=== PATIENT | female | born 2000 | race Caucasian/White ===

== ENCOUNTER 2020-09-19 23:16 | Emergency (ER) | payer OTHER ==
[~2020-09-19] VITALS: Ht 170.2 cm; Wt 100.0 kg
[2020-09-19 23:22] VITALS: TEMP 98.9
[2020-09-20 00:27] LABS: BASO % 0.4 % (0.0-2.0); EOS % 0.4 % (0-4.0); GRAN # 5.8 (1.4-6.5); GRAN % 64.6 % (42.2-75.2); HEMATOCRIT 39.2 % (37.0-47.0); HEMOGLOBIN 13.5 g/dl (12.5-16.0); LYMPH # 2.3 (1.2-3.4); LYMPH % 25.7 % (20.0-51.0); MEAN CELL VOLUME 93 fl (80.0-100.0); MEAN CORPUSCULAR HEMOGLOBIN 32 pg (27.0-31.0); MEAN CORPUSCULAR HGB CONC 34 g/dl (33.0-37.0); MEAN PLATELET VOLUME 8.9 fl (7.4-10.4); MONO # 0.8 (0.1-0.6); MONO % 8.7 % (1.7-9.3); PLATELET COUNT 347 K/mm3 (130-400); REDCELL DISTRIBUTION WIDTH-CV 12.6 % (11.5-14.5)
[2020-09-20 00:34] LABS: PROTHROMBIN TIME 10.7 SECONDS (9.7-12.8)
[2020-09-20 00:46] LABS: ALANINE AMINOTRANSFERASE 15 U/L (4-34); ALBUMIN 4.7 gm/dL (3.5-5.0); ALKALINE PHOSPHATASE 70 U/L (50-136); ANION GAP 10 mmol/L (7-16); AST,SGOT 24 U/L (15-37); BILIRUBIN,TOTAL 0.4 mg/dL (0.0-1.0); BLOOD UREA NITROGEN 11 mg/dL (7-17); C-REACTIVE PROTEIN 2.3 mg/dL (0.0-0.9); CALCIUM 9.4 mg/dL (8.4-10.2); CARBON DIOXIDE 27 mmol/L (22-30); CHLORIDE 102 mmol/L (98-107); CREATININE, serum 0.65 (0.52-1.25); GLUCOSE 118 mg/dL (74-106); POTASSIUM 3.9 mmol/L (3.4-5.0); SODIUM 139 mmol/L (137-145); TOTAL PROTEIN 8.3 gm/dL (6.4-8.2)
[2020-09-20 00:55] LABS: TROPONIN-I < 0.012 ng/mL (0.000-0.035)
[2020-09-20] MEDS ORDERED: ATARAX50 MG PO (01:37)
[2020-09-20 01:41] VITALS: BP 146/104
[2020-09-20 01:56] VITALS: PULSE 106
== END 2020-09-20 02:15 | disposition home or self-care (01) ==
LOC: COL.ER 23:16
PROVIDERS: Nurse Practitioner Primary Care
DX: R07.9 Chest pain, unspecified (principal)